=== PATIENT | female | born 1990 | race Two or more races ===

== ENCOUNTER 2022-09-01 15:21 | Outpatient (CLI) | payer OTHER | END 2022-09-01 16:55 | disposition home or self-care (01) | LOC: PRENATAL 15:21 | PROVIDERS: ATTEND Obstetrics & Gynecology Maternal & Fetal Medicine | DX: O36.80X0 Pregnancy with inconclusive fetal viability, not applicable or unspecified (principal); Z3A.12 12 weeks gestation of pregnancy ==

== ENCOUNTER 2022-10-29 12:27 | Outpatient (CLI) | payer OTHER | END 2022-10-29 17:20 | disposition home or self-care (01) | LOC: PRENATAL 12:27 | PROVIDERS: ATTEND Obstetrics & Gynecology Maternal & Fetal Medicine | DX: O35.9XX0 Maternal care for (suspected) fetal abnormality and damage, unspecified, not applicable or unspecified (principal); Z14.8 Genetic carrier of other disease; Z3A.21 21 weeks gestation of pregnancy ==

== ENCOUNTER 2023-01-14 14:01 | Outpatient (CLI) | payer OTHER | END 2023-01-14 15:31 | disposition home or self-care (01) | LOC: PRENATAL 14:01 | PROVIDERS: ATTEND Obstetrics & Gynecology Maternal & Fetal Medicine | DX: O26.849 Uterine size-date discrepancy, unspecified trimester (principal); O36.8199 Decreased fetal movements, unspecified trimester, other fetus; Z14.8 Genetic carrier of other disease; Z3A.32 32 weeks gestation of pregnancy ==

== ENCOUNTER 2023-01-26 08:47 | Emergency (ER) | payer OTHER ==
[~2023-01-26] VITALS: Ht 162.6 cm; Wt 76.2 kg
[2023-01-26 09:57] LABS: HEMATOCRIT 32.6 % (36.0-45.00); HEMOGLOBIN 11.5 g/dL (12.0-15.00); MEAN CELL VOLUME 92.7 fL (80.00-100.00); MEAN CORPUSCULAR HEMOGLOBIN 32.6 pg (27.00-32.0); MEAN CORPUSCULAR HGB CONC 35.1 g/dl (32.0-36.0); PLATELET COUNT 164 K/uL (150-450); RED BLOOD COUNT 3.51 M/uL (4.00-6.00)
[2023-01-26 10:32] LABS: CALCIUM 8.7 mg/dL (8.5-10.1); CREATININE SERUM 0.54 mg/dL (0.55-1.02); GFR 131.68; POTASSIUM 3.72 mEq/L (3.5-5.1)
[2023-01-26 11:41] LABS: URINE APPEARANCE Clear; URINE BILIRRUBIN Negative (NEGATIVE); URINE BLOOD Negative; URINE COLOR Yellow; URINE GLUCOSE Negative (NEGATIVE); URINE LEUKOCYTE Moderate; URINE NITRATE Negative; URINE PROTEIN Negative (NEGATIVE)
[2023-01-26 11:46] LABS: URINE BACTERIA 3402.9 uL (0.0-1933); URINE EPITHELIAL CELLS 56.4 uL (0.0-38.8); URINE RBC 26.5 uL (0.0-20.8); URINE WBC 135.5 uL (0.0-23.2)
[2023-01-26 12:10] LABS: URINE SPERM A
== END 2023-01-26 16:11 | disposition home or self-care (01) ==
LOC: ER
PROVIDERS: General Practice
DX: N39.0 Urinary tract infection, site not specified (principal); E86.0 Dehydration; K52.89 Other specified noninfective gastroenteritis and colitis; R11.10 Vomiting, unspecified; Z3A.30 30 weeks gestation of pregnancy

== ENCOUNTER 2024-07-12 08:47 | Outpatient (CLI) | payer OTHER ==
[~2024-07-12 08:47] MED LIST: IRON236 MG; IRON325 MG PO; PRENATABS RX T1 EACH PO; PRENATE DHA SO1 EAC1
== END 2024-07-12 08:49 | disposition home or self-care (01) ==
LOC: PRENATAL 08:47
PROVIDERS: ATTEND Obstetrics & Gynecology Maternal & Fetal Medicine
DX: O36.80X0 Pregnancy with inconclusive fetal viability, not applicable or unspecified (principal); Z36.82 Encounter for antenatal screening for nuchal translucency; Z14.8 Genetic carrier of other disease; Z3A.12 12 weeks gestation of pregnancy

== ENCOUNTER → 2024-09-10 11:35 | Outpatient (CLI) | payer OTHER ==
[~2024-09-10 11:35] MED LIST changes: +ALLEGRA ALLERG180 MG; +ALLEGRA ALLERG180 MG PO; +SINGULAIR5 MG PO; +VENTOLIN HFA18 GM
== END | disposition home or self-care (01) ==
LOC: PRENATAL 11:35
PROVIDERS: ATTEND Obstetrics & Gynecology Maternal & Fetal Medicine
DX: O09.529 Supervision of elderly multigravida, unspecified trimester (principal); O34.219 Maternal care for unspecified type scar from previous cesarean delivery; O99.210 Obesity complicating pregnancy, unspecified trimester; O34.30 Maternal care for cervical incompetence, unspecified trimester; O24.419 Gestational diabetes mellitus in pregnancy, unspecified control; Z3A.20 20 weeks gestation of pregnancy

== ENCOUNTER 2024-09-11 11:42 | Day surgery (SDC) | payer OTHER ==
[~2024-09-11] VITALS: Ht 162.6 cm; Wt 72.6 kg
[~2024-09-11 11:42] MED LIST changes: -ALLEGRA ALLERG180 MG; -ALLEGRA ALLERG180 MG PO; -SINGULAIR5 MG PO; -VENTOLIN HFA18 GM
[2024-09-11 12:01] VITALS: BP 110/68
[2024-09-11] MEDS ORDERED: VENTOLIN HFA18 GM (13:06)
[2024-09-11 13:08] LABS: BASO % 0.2 % (0.1-1.2); EOS # 0.11 (0.04-0.54); EOS % 2.3 % (0.7-7.0); HEMATOCRIT 29.3 % (34.1-44.9); HEMOGLOBIN 10.2 g/dL (11.2-15.7); LYMPH % 19.2 % (19.3-53.1); MEAN CORPUSCULAR HEMOGLOBIN 31.4 pg (25.6-32.2); MONO # 0.24 (0.24-0.82); MONO % 5.1 % (4.7-12.5); NEUT # 3.42 (1.56-6.13); PLATELET COUNT 199 K/uL (163-369); RED BLOOD COUNT 3.25 M/uL (3.93-5.22); RED CELL DISTRIBUTION WIDTH 11.2 % (11.6-14.4)
[2024-09-11] MEDS ORDERED: ALLEGRA ALLERG180 MG PO (13:08)
[2024-09-11] MEDS ORDERED: ALLEGRA ALLERG180 MG (13:08)
[2024-09-11] MEDS ORDERED: SINGULAIR5 MG PO (13:09)
[2024-09-11 13:28] LABS: PH,URINE 7.5 (5.0-8.0); URINE APPEARANCE Clear; URINE BILIRRUBIN Negative (NEGATIVE); URINE BLOOD Negative; URINE COLOR Yellow; URINE GLUCOSE Negative (NEGATIVE); URINE KETONE Negative (NEGATIVE); URINE LEUKOCYTE Large; URINE NITRATE Negative; URINE PROTEIN Negative (NEGATIVE); URINE UROBILINOGEN 0.2 E.U./dl
[2024-09-11 13:32] LABS: INR 0.97; PROTHROMBIN TIME 10.6 SECONDS (9.0-11.5)
[2024-09-11 13:34] LABS: URINE BACTERIA 2675.5 uL (0.0-1933); URINE EPITHELIAL CELLS 33.3 uL (0.0-38.8); URINE RBC 13.5 uL (0.0-20.8); URINE WBC 28.3 uL (0.0-23.2)
[2024-09-11 13:35] LABS: URINE CAST 0.58 uL (0.0-1.40)
[2024-09-11] MEDS ORDERED: METRONIDAZOLE/SODIUM CHLORIDE 500 MG/100 ML PIGGYBACK IV SCH (14:00)
[2024-09-11] MEDS ORDERED: RINGERS SOLUTION,LACTATED 1,000 ML IV SCH (14:00)
[2024-09-11] MEDS ORDERED: INDOMETHACIN 50 MG CAPSULE PO SCH (14:00)
[2024-09-11] MEDS ORDERED: POVIDONE-IODINE 118 ML BOTT TOP ONE (14:54)
[2024-09-11 15:10] VITALS: BP 100/63
[2024-09-11] MEDS ORDERED: INDOMETHACIN 25 MG CAPSULE PO SCH (17:00)
[2024-09-19 21:11] LABS: mycoplasma hominis Negative (Negative); ureaplasma urealyticum Positive (Negative)
== END 2024-09-11 20:40 | disposition home or self-care (01) ==
LOC: LDR 11:42 → CIR.AMB 11:42 → EDSTATUS 16:45 → O/R 16:54 → LDR 16:54 → CIR.AMB 20:40 → O/R 20:40
PROVIDERS: ATTEND Obstetrics & Gynecology Maternal & Fetal Medicine
DX: O34.32 Maternal care for cervical incompetence, second trimester (principal); Z3A.20 20 weeks gestation of pregnancy

== ENCOUNTER 2024-09-24 14:37 | Outpatient (CLI) | payer OTHER ==
[~2024-09-24 14:37] MED LIST changes: +ALLEGRA ALLERG180 MG; +ALLEGRA ALLERG180 MG PO; +SINGULAIR5 MG PO; +VENTOLIN HFA18 GM; +ZITHROMAX500 MG PO
== END 2024-09-24 14:38 | disposition home or self-care (01) ==
LOC: PRENATAL 14:37
PROVIDERS: ATTEND Obstetrics & Gynecology Maternal & Fetal Medicine
DX: O26.879 Cervical shortening, unspecified trimester (principal); Z3A.22 22 weeks gestation of pregnancy

== ENCOUNTER → 2024-10-10 15:05 | Outpatient (CLI) | payer OTHER | END | disposition home or self-care (01) | LOC: PRENATAL 15:05 | PROVIDERS: ATTEND Obstetrics & Gynecology Maternal & Fetal Medicine | DX: O26.849 Uterine size-date discrepancy, unspecified trimester (principal); O26.879 Cervical shortening, unspecified trimester; Z3A.24 24 weeks gestation of pregnancy ==

== ENCOUNTER 2024-10-16 16:34 | Outpatient (CLI) | payer OTHER ==
[2024-10-16 15:27] VITALS: BP 105/69
[2024-10-16 15:53] VITALS: BP 107/76
[~2024-10-16 16:34] MED LIST changes: -0.9 % SODIUM CHLORIDE 250 ML IV SCH; -FAMOTIDINE/PF 20 MG/2 ML VIAL IV PUSH ONE; -ONDANSETRON 4 MG TAB.RAPDIS PO ONE
[2024-10-16] MEDS ORDERED: ONDANSETRON HCL 4 MG in 0.9 % SODIUM CHLORIDE 50 ML IV SCH ×2 (17:00→21:00)
[2024-10-16] MEDS ORDERED: ACETAMINOPHEN 500 MG GEL..CAP PO ONE (18:41)
[2024-10-16 20:47] VITALS: BP 93/54
[2024-10-16 23:32] VITALS: BP 97/60
[2024-10-17 03:00] VITALS: BP 99/60
[2024-10-17 06:13] VITALS: BP 100/63; O2SAT 97
[2024-10-17] MEDS ORDERED: ACETAMINOPHEN 500 MG GEL..CAP PO ONE (06:30)
[2024-10-17] MEDS ORDERED: FAMOTIDINE/PF 20 MG in 0.9 % SODIUM CHLORIDE 100 ML IV SCH (09:00)
[2024-10-17 09:56] VITALS: BP 100/63
== END 2024-10-17 10:26 | disposition home or self-care (01) ==
LOC: OBS/DEL 16:34
PROVIDERS: ATTEND Student in an Organized Health Care Education/Training Program
DX: O26.892 Other specified pregnancy related conditions, second trimester (principal); R11.2 Nausea with vomiting, unspecified; R19.7 Diarrhea, unspecified; Z3A.25 25 weeks gestation of pregnancy

== ENCOUNTER → 2024-10-16 | Emergency (ER) | payer OTHER ==
[~2024-10-16] VITALS: Ht 162.6 cm; Wt 74.4 kg
[~2024-10-16] MED LIST changes: +0.9 % SODIUM CHLORIDE 250 ML IV SCH; +ALLEGRA ALLERGY60 MG; +FAMOTIDINE/PF 20 MG/2 ML VIAL IV PUSH ONE; +ONDANSETRON 4 MG TAB.RAPDIS PO ONE; +PRENATE ELITE1 EAC2; +PROTONIX20 MG PO; +WIXELA 100-501 EACH IH
[2024-10-16 13:14] LABS: BASO % 0.1 % (0.1-1.2); EOS # 0.00 (0.04-0.54); EOS % 0.0 % (0.7-7.0); LYMPH # 0.25 (1.18-3.74); LYMPH % 3.6 % (19.3-53.1); MEAN PLATELET VOLUME 10.30 fl (9.4-12.4); MONO # 0.10 (0.24-0.82); MONO % 1.4 % (4.7-12.5); NEUT # 6.59 (1.56-6.13); NEUT % 94.5 % (34.0-71.1); RED CELL DISTRIBUTION WIDTH 11.9 % (11.6-14.4)
[2024-10-16 13:54] LABS: URINE APPEARANCE Clear; URINE BILIRRUBIN Negative (NEGATIVE); URINE BLOOD Negative; URINE COLOR Yellow; URINE GLUCOSE Negative (NEGATIVE); URINE KETONE 15 (NEGATIVE); URINE LEUKOCYTE Trace; URINE NITRATE Negative; URINE PROTEIN Negative (NEGATIVE); URINE UROBILINOGEN 1.0 E.U./dl
[2024-10-16 13:58] LABS: URINE BACTERIA 262.6 uL (0.0-1933); URINE EPITHELIAL CELLS 19.0 uL (0.0-38.8); URINE RBC 9.6 uL (0.0-20.8); URINE WBC 19.3 uL (0.0-23.2)
[2024-10-16 14:05] LABS: BUN CREA RATIO 14.0 (7.0-25.0); CREATININE SERUM 0.49 mg/dL (0.55-1.02); GFR 146.35; GLUCOSE FASTING 90.0 mg/dL (65-100); OSMOLALITY SERUM 271.0 MOSM/KG (275-295)
[2024-10-16 14:19] LABS: HCG QUANTITATIVE 16129.0 mUI/mL (1-3)
[2024-10-16 14:19] LABS: URINE CAST 0.14 uL (0.0-1.40)
== END | disposition designated cancer center or children's hospital (05) ==
LOC: ER 10:36
PROVIDERS: Emergency Medicine
DX: O21.1 Hyperemesis gravidarum with metabolic disturbance (principal); Z3A.25 25 weeks gestation of pregnancy

== ENCOUNTER 2024-11-02 12:31 | Outpatient (CLI) | payer OTHER | END 2024-11-02 12:32 | disposition home or self-care (01) | LOC: PRENATAL 12:31 | PROVIDERS: ATTEND Obstetrics & Gynecology Maternal & Fetal Medicine | DX: O44.00 Complete placenta previa NOS or without hemorrhage, unspecified trimester (principal); O09.519 Supervision of elderly primigravida, unspecified trimester; Z3A.20 20 weeks gestation of pregnancy ==

== ENCOUNTER → 2024-12-12 13:53 | Outpatient (CLI) | payer OTHER | END | disposition home or self-care (01) | LOC: PRENATAL 13:53 | PROVIDERS: ATTEND Obstetrics & Gynecology Maternal & Fetal Medicine | DX: O26.849 Uterine size-date discrepancy, unspecified trimester (principal); O36.8130 Decreased fetal movements, third trimester, not applicable or unspecified; O26.879 Cervical shortening, unspecified trimester; Z3A.34 34 weeks gestation of pregnancy ==

== ENCOUNTER 2025-01-23 07:29 | Inpatient (IN) | payer OTHER ==
[~2025-01-23] VITALS: Ht 162.6 cm; Wt 83.5 kg
[2025-01-23] VITALS (7 sets, daily range): BP systolic 114–136; BP diastolic 67–76; O2SAT 100
[2025-01-23] MEDS ORDERED: RINGERS SOLUTION,LACTATED 1,000 ML IV SCH (08:00)
[2025-01-23] MEDS ORDERED: PEPCID20 MG PO (08:38)
[2025-01-23] MEDS ORDERED: FAMOTIDINE/PF 20 MG/2 ML VIAL IV ONE (12:45)
[2025-01-23] MEDS ORDERED: OXYTOCIN 500 ML IV SCH (13:00)
[2025-01-23] MEDS ORDERED: CHLORHEXIDINE GLUCONATE 120 ML BOTTLE TOP ONE (17:38)
[2025-01-23] MEDS ORDERED: OXYTOCIN 20 UNITS/1000ML RL PIGGYBAG IV ONE (17:38)
[2025-01-23] MEDS ORDERED: LIDOCAINE HCL 1% 10ML VIAL ONE (17:38)
[2025-01-23] MEDS ORDERED: ERYTHROMYCIN BASE OPHT 1GM EACH TUBE OP ONE (17:38)
[2025-01-23] MEDS ORDERED: OXYTOCIN 1,000 ML IV SCH (19:45)
[2025-01-23] MEDS ORDERED: ACETAMINOPHEN 500 MG GEL..CAP PO PRN (19:45)
[2025-01-24 00:45] VITALS: BP 112/62
[2025-01-24 00:53] LABS: BASO % 0.1 % (0.1-1.2); EOS # 0.00 (0.04-0.54); EOS % 0.0 % (0.7-7.0); LYMPH # 0.93 (1.18-3.74); LYMPH % 7.4 % (19.3-53.1); MEAN PLATELET VOLUME 11.70 fl (9.4-12.4); MONO # 0.58 (0.24-0.82); MONO % 4.6 % (4.7-12.5); NEUT # 11.00 (1.56-6.13); NEUT % 87.2 % (34.0-71.1); RED CELL DISTRIBUTION WIDTH 13.1 % (11.6-14.4)
[2025-01-24] MEDS ORDERED: PNV,CALCIUM 72/IRON/FOLIC ACID 1 TAB TABLET PO SCH (09:00)
[2025-01-24 09:04] VITALS: BP 99/62
[2025-01-24] MEDS ORDERED: IRON/V.C/V.B12/FOLIC A/VIT. E 1 CAPL CAPLET PO SCH (17:00)
[2025-01-24] MEDS ORDERED: HYDROCORTISONE 2.5% 20 GM TUBE RECTAL SCH (18:21)
[2025-01-24] MEDS ORDERED: HYDROCORTISONE 2.5% 30 GM TUBE TOP SCH (18:24)
[2025-01-24 19:01] VITALS: BP 129/78
[2025-01-25 00:41] VITALS: BP 107/68
[2025-01-25 08:00] VITALS: BP 144/80
[2025-01-25 14:22] LABS: BASO % 0.1 % (0.1-1.2); EOS # 0.07 (0.04-0.54); EOS % 1.0 % (0.7-7.0); LYMPH # 1.34 (1.18-3.74); LYMPH % 19.8 % (19.3-53.1); MEAN PLATELET VOLUME 11.70 fl (9.4-12.4); MONO # 0.41 (0.24-0.82); MONO % 6.1 % (4.7-12.5); NEUT # 4.87 (1.56-6.13); NEUT % 72.1 % (34.0-71.1); RED CELL DISTRIBUTION WIDTH 13.6 % (11.6-14.4)
== END 2025-01-25 18:15 | disposition home or self-care (01) | DRG 807 ==
LOC: LDR 07:29 → OB/GYN 01-24 00:43
PROVIDERS: ADMIT Student in an Organized Health Care Education/Training Program; ATTEND Student in an Organized Health Care Education/Training Program
PROC: 10E0XZZ Delivery of Products of Conception, External Approach (ICD-10-PCS; principal; 2025-01-23)
PROC: 0KQM0ZZ Repair Perineum Muscle, Open Approach (ICD-10-PCS; 2025-01-23)
PROC: 4A1HXCZ Monitoring of Products of Conception, Cardiac Rate, External Approach (ICD-10-PCS; 2025-01-23)
DX: O70.1 Second degree perineal laceration during delivery (principal); Z37.0 Single live birth; Z3A.39 39 weeks gestation of pregnancy